=== PATIENT | female | born 1970 | race Caucasian/White ===

== ENCOUNTER 2025-04-27 08:48 | Emergency (ER) | payer MEDICAID ==
[2025-04-27] MEDS ORDERED: Acetaminophen 500 MG TAB ONE ×2 (09:16→09:28)
[2025-04-27] MEDS ORDERED: Ketorolac Tromethamine 30 MG (1 mL) VIAL ONE (09:16)
== END 2025-04-27 10:24 | disposition home or self-care (01) ==
LOC: CSHERS 08:48
DX: M54.42 Lumbago with sciatica, left side (principal); Z85.3 Personal history of malignant neoplasm of breast
CPT/HCPCS: 72100; 96372; 99283; J1885